=== PATIENT | female | born 1945 | race Caucasian/White ===

== ENCOUNTER 2021-02-24 13:00 | Inpatient (IN) ==
[2021-02-24 13:23] VITALS: BMI 38.7
--- NOTE | 2021-02-24 13:47 | DR.EXTPAIN ---
HPI Time seen Time Seen by Provider: 02/24/21 13:43 PCP Primary Care Physician: TRUDY Complaint/Symptoms Chief Complaint:: PT C/O SYNCOPAL EPISODES FOR THE PAST COUPLE OF DAYS. PTS O2 UPON EMS ARRIVAL WAS 84% ON RA. PT STATES SHE COULDN'T FIND HER INHALER. EMS FOUND PTS INHALER AND AFTER INHALER SHE COME UP TO 94-96%. EMS PLACED PT ON 3L N/C. PT IS CURRENTLY ON 2L N/C @ 99%. PT IS ALERT AND TALKING ON CELLPHONE UPON ARRIVAL. PT IS TALKING ON CELLPHONE AT THIS TIME WHILE ON STRETCHER IN [facility]. ABLE TO ANSWER QUESTIONS AND MAKE NEEDS KNOWN, VERY MUCH ALERT AND TALKATIVE. Source History Provided: Patient Mode of arrival Mode of Arrival: Stretcher Timing Onset of Chief Complaint: 02/24/21 PMH PMH Past Medical History: Yes Past Medical History: Arthritis, Asthma, COPD, Depression, Diabetes, Dyslip idemia, Gout, Hypertension, Hypothyroidism and Seizures Past Surgical History: Yes Surgical History: Cholecystectomy Family History History of Family Medical Conditions: Yes Family Medical History: Diabetes Mellitus, Cancer, Heart Failure and Hypertension Social History Does patient currently use any type of tobacco product: No Have you used tobacco products in the last 12 months: No Type of Tobacco Use: None Does any household member use tobacco: No Alcohol Use: None Do you use any recreational Drugs:: No Lives With: Alone Lives Where: Home Infectious screening In the last 2 months have you had wt loss of >10#?: NO Have you had fever, night sweats or hemotysis?: No Have you traveled outside the country in the last 6 months?: No Isolation: Standard ROS Review of Systems Constitutional: No Symptoms Reported and See HPI Eyes: No Symptoms Reported and See HPI ENTM: No Symptoms Reported and See HPI Respiratoy: No Symptoms Reported and See HPI Cardiovascular: No Symptoms Reported and See HPI Gastrointestinal/Abdominal: No Symptoms Reported and See HPI Genitourinary: No Symptoms Reported and See HPI Neurological: No Symptoms Reported and See HPI Musculoskeletal: No Symptoms Reported and See HPI Integumentary: No Symptoms Reported and See HPI Hematologic/Lymphatic: No Symptoms Reported and See HPI Endocrine: No Symptoms Reported and See HPI Psychiatric: No Symptoms Reported and See HPI All Other Systems: Reviewed and Negative PE Vital Signs Vitals: Temperature 97.4 F Pulse Rate 73 Respiratory Rate 20 Blood Pressure 135/89 O2 Sat by Pulse Oximetry 100 General Limitations: No Limitations General Appearance: Alert and In No Apparent Distress Head Head Exam: Normal Inspection Eyes Eye exam: Normal Appearance ENT ENT Exam: Normal Exam Neck Neck Exam: Normal Inspection Chest Chest Inspection: Normal Inspection Respiratory Respiratory Exam: Normal Lung Sounds Bilat Cardiovascular Cardiovascular Exam: Regular Rate and Normal Rhythm Abdominal Exam Abdominal Exam: Normal Inspection, Normal Bowel Sounds and Soft Extremities Extremities Exam: Normal Inspection Back Back Exam: Normal Inspection Neurological Neurological Exam: Alert, Oriented X3 and CN II-XII Intact Psychiatric Psychiatric Exam: Normal Affect and Normal Mood Skin Skin Exam: Warm, Dry, Intact and Normal Color ROR Labs Reviewed Result Diagrams: 02/24/21 15:30 02/24/21 15:30 Laboratory: WBC 19.0 X10^3/uL (3.6-10.0) H 02/24/21 15:30 RBC 4.50 X10^6/uL (3.5-5.4) 02/24/21 15:30 Hgb 14.4 g/dL (12.0-16.0) 02/24/21 15:30 Hct 42.9 % (36.0-47.0) 02/24/21 15:30 MCV 95.3 fL (80.0-100.0) 02/24/21 15:30 MCH 32.0 pg (27.0-34.0) 02/24/21 15:30 MCHC 33.5 g/dL (33.0-35.0) 02/24/21 15:30 RDW 15.5 % (11.6-16.5) 02/24/21 15:30 Plt Count 455 X10^3/uL (150.0-450.0) H 02/24/21 15:30 Plt Count Comment Increased (ADEQUATE) A 02/24/21 15:30 MPV 8.4 fL (7.4-11.0) 02/24/21 15:30 Neut % (Auto) 80.2 % (42.0-75.0) H 02/24/21 15:30 Lymph % (Auto) 13.6 % (21.0-51.0) L 02/24/21 15:30 [place] % (Auto) 5.5 % (0.0-13.0) 02/24/21 15:30 Eos % (Auto) 0.2 % (0.9-2.9) L 02/24/21 15:30 Baso % (Auto) 0.5 % (0.2-1.0) 02/24/21 15:30 Neut # (Auto) 14.1 x10^3/uL (2.2-4.8) H 02/24/21 15:30 Lymph # (Auto) 2.4 X10^3/uL (1.3-2.9) 02/24/21 15:30 [place] # (Auto) 1.0 x10^3/uL (0.3-0.8) H 02/24/21 15:30 Eos # (Auto) 0.0 x10^3/uL (0.0-0.2) 02/24/21 15:30 Baso # (Auto) 0.1 X10^3/uL (0.0-0.1) 02/24/21 15:30 Absolute Nucleated RBC 0.5 /100WBC 02/24/21 15:30 Plt Morphology Comment Normal (NORMAL) 02/24/21 15:30 RBC Morphology Normal (NORMAL) 02/24/21 15:30 Sodium 138 mmol/L (136-145) 02/24/21 15:30 Corrected Sodium 138 mmol/L (136-145) 02/24/21 15:30 Potassium 4.5 mmol/L (3.5-5.1) 02/24/21 15:30 Chloride 100 mmol/L (98-107) 02/24/21 15:30 Carbon Dioxide 26.7 mmol/L (21-32) 02/24/21 15:30 BUN 35 mg/dL (7-18) H 02/24/21 15:30 Creatinine 4.49 mg/dL (0.55-1.02) H 02/24/21 15:30 Est GFR (MDRD) Af Amer 12 (>60) L 02/24/21 15:30 Est GFR (MDRD) Non-Af 10 (>60) L 02/24/21 15:30 Glucose 115 mg/dL (65-99) H 02/24/21 15:30 Calcium 9.2 mg/dL (8.5-10.1) 02/24/21 15:30 Corrected Calcium TNP 02/24/21 15:30 Total Bilirubin 0.70 mg/dL (0.2-1.0) 02/24/21 15:30 AST 59 Units/L (15-37) H 02/24/21 15:30 ALT 41 Units/L (12-78) 02/24/21 15:30 Alkaline Phosphatase 135 Units/L (46-116) H 02/24/21 15:30 Creatine Kinase 137 Units/L (26-192) 02/24/21 15:30 CK-MB (CK-2) 2.1 ng/mL (0-4.0) 02/24/21 15:30 CK/CKMB % Calc 1.5 % (<4) 02/24/21 15:30 Troponin I < 0.02 ng/mL (0-1.5) 02/24/21 15:30 Total Protein 7.9 g/dL (6.4-8.2) 02/24/21 15:30 Albumin 3.8 g/dL (3.4-5.0) 02/24/21 15:30 Globulin 4.1 g/dL (2.5-4.5) 02/24/21 15:30 Albumin/Globulin Ratio 0.9 Ratio (1.1-2.1) L 02/24/21 15:30 Specimen Type Clean catch urine 02/24/21 16:55 Urine Color Dark yellow (YELLOW) 02/24/21 16:55 Urine Appearance Cloudy (CLEAR) 02/24/21 16:55 Urine pH 5.0 (5.0 - 8.0) 02/24/21 16:55 Ur Specific [place] 1.020 (1.000-1.030) 02/24/21 16:55 Urine Protein 3+ (NEGATIVE) 02/24/21 16:55 Urine Glucose (UA) Negative (NEGATIVE) 02/24/21 16:55 Urine Ketones 1+ (NEGATIVE) 02/24/21 16:55 Urine Occult Blood 3+ (NEGATIVE) 02/24/21 16:55 Urine Nitrite Negative (NEGATIVE) 02/24/21 16:55 Urine Bilirubin 3+ (NEGATIVE) 02/24/21 16:55 Urine Urobilinogen 1+ (NORMAL) 02/24/21 16:55 Ur Leukocyte Esterase 3+ (NEGATIVE) 02/24/21 16:55 Urine RBC Tntc /HPF (0-3) A 02/24/21 16:55 Urine WBC Tntc /HPF (0-5) A 02/24/21 16:55 Ur Squamous Epith Cells Numerous /HPF (NEGATIVE) 02/24/21 16:55 Amorphous Sediment 4+ /HPF (NEGATIVE) 02/24/21 16:55 Urine Bacteria 3+ /HPF (NEGATIVE) 02/24/21 16:55 Ur Culture Indicated? No/not indicated 02/24/21 16:55 SARS CoV-2 RNA Rapid FARSHAD Negative (NEGATIVE) 02/24/21 19:20 Opioid Opioid Risk Tool Age (Sal box if 16-45): No History of Preadolescent Sexual Abuse: No Total: 0 Total Score Risk Category: Low Risk Copyright: Handy BOLTON predicting aberrant behaviors Diagnosis Discharge Problem: Acute dehydration, Acute renal failure, Episode of syncope, UTI (urinary tract infection) Instructions Forms: Precautions for COVID19 [facility] Patient Portal Social Distancing
--- NOTE | 2021-02-24 15:00 | CT ---
HISTORYSYNCOPESTUDYBRAIN W/O CONCOMPARISONNone.TECHNIQUEMultiple axial images of the head were performed from the skullbase to the vertex using standard departmental protocol. Sagittal and coronal reformatted images were performed. Dose reduction techniques including Automated Exposure Control (AEC) and adjustment of mA and kV were utilized.FINDINGSThe lateral ventricles and basilar cisterns are patent.No parenchymal mass or hematoma. Chavez-white differentiation appears acutely preserved.No extra-axial collection.The globes are intact.Partial opacification the right sphenoid sinus. Mild mucosal thickening of the right maxillary and left sphenoid sinus.The calvarium is intact.IMPRESSIONNo acute intracranial abnormality.Electronically signed by: Nnamdi Adan (Feb 24, 2021 14:58:46)
[2021-02-24 15:44] LABS: BASOPHILS # (AUTO) 0.1 X10^3/uL (0.0-0.1); BASOPHILS % (AUTO) 0.5 % (0.2-1.0); EOSINOPHILS % (AUTO) 0.2 % (0.9-2.9); HEMATOCRIT 42.9 % (36.0-47.0); HEMOGLOBIN 14.4 g/dL (12.0-16.0); LYMPHOCYTES # (AUTO) 2.4 X10^3/uL (1.3-2.9); LYMPHOCYTES % (AUTO) 13.6 % (21.0-51.0); MEAN CORPUSCULAR HGB CONC 33.5 g/dL (33.0-35.0); MEAN CORPUSCULAR VOLUME 95.3 fL (80.0-100.0); MEAN PLATELET VOLUME 8.4 fL (7.4-11.0); MONOCYTES % (AUTO) 5.5 % (0.0-13.0); NEUTROPHILS # (AUTO) 14.1 x10^3/uL (2.2-4.8); NEUTROPHILS % (AUTO) 80.2 % (42.0-75.0); PLATELET COUNT 455 X10^3/uL (150.0-450.0); RED CELL DISTRIBUTION WIDTH 15.5 % (11.6-16.5)
[2021-02-24 16:08] LABS: PLATELET MORPHOLOGY COMMENT NORMAL (NORMAL)
[2021-02-24 16:44] LABS: ALANINE AMINOTRANSFERASE 41 Units/L (12-78); ALKALINE PHOSPHATASE 135 Units/L (46-116); ASPARTATE AMINO TRANSFERASE 59 Units/L (15-37); CARBON DIOXIDE 26.7 mmol/L (21-32); CHLORIDE 100 mmol/L (98-107); CKMB % 1.5 % (<4); COR NA(FOR HYPERGLY) 138 mmol/L (136-145); CREATINE KINASE 137 Units/L (26-192); CREATINE KINASE MB 2.1 ng/mL (0-4.0); SODIUM 138 mmol/L (136-145); TOTAL PROTEIN 7.9 g/dL (6.4-8.2); TROPONIN I < 0.02 ng/mL (0-1.5)
[2021-02-24 16:59] LABS: ALBUMIN 3.8 g/dL (3.4-5.0); BLOOD UREA NITROGEN 35 mg/dL (7-18); CALCIUM 9.2 mg/dL (8.5-10.1); CREATININE 4.49 mg/dL (0.55-1.02); eGFR NON BLACK RACES 10 (>60)
[2021-02-24 17:18] LABS: BILIRUBIN,URINE 3+ (NEGATIVE); BLOOD/HEMOGLOBIN,URINE 3+ (NEGATIVE); GLUCOSE, URINE NEGATIVE (NEGATIVE); KETONES,URINE 1+ (NEGATIVE); LEUKOCYTE ESTERASE ,URINE 3+ (NEGATIVE); NITRITES,URINE NEGATIVE (NEGATIVE); PROTEIN,URINE 3+ (NEGATIVE); UROBILINOGEN,URINE 1+ (NORMAL)
[2021-02-24 17:25] LABS: APPEARANCE,URINE CLOUDY (CLEAR); COLOR,URINE DARK YELLOW (YELLOW)
[2021-02-24 17:37] LABS: AMORPHOUS SEDIMENT,UR 4+ /HPF (NEGATIVE); BACTERIA,URINE 3+ /HPF (NEGATIVE); RBC,URINE TNTC /HPF (0-3); SQUAMOUS EPITHELIAL CELL,UR NUMEROUS /HPF (NEGATIVE)
--- NOTE | 2021-02-24 18:04 | RAD ---
Chest AP portableIndication: DyspneaComparison February 07, 2021FINDINGSThere is no pneumothorax or effusion. There is no dense consolidation. Heart size is normal.IMPRESSIONNo acute chest process.Electronically signed by: YOLI BYRNE (Feb 24, 2021 18:03:11)
[2021-02-24] MEDS ORDERED: ROCEPHIN 1 GRAM IV PREMIX 1 G/50 ML IV.SOLN. IV ONE ×2 (20:44→20:48)
[2021-02-24] MEDS: NS 1,000 ML IV 1,000 ML IV SCH (22:49)
[2021-02-24 23:55] LABS: CKMB % 2.2 % (<4); CREATINE KINASE 92 Units/L (26-192); TROPONIN I < 0.02 ng/mL (0-1.5)
[2021-02-25] MEDS ORDERED: ULTRAM PO PRN (01:58)
[2021-02-25] MEDS ORDERED: ULTRAM ONE (02:04)
[2021-02-25 02:30] LABS: CKMB % 2.3 % (<4); CREATINE KINASE 84 Units/L (26-192); CREATINE KINASE MB 1.9 ng/mL (0-4.0); TROPONIN I < 0.02 ng/mL (0-1.5)
[2021-02-25] MEDS: PROVENTIL NEB TX 0.083% 2.5MG/ 3ML NEB PRN ×4 (04:55→20:43)
[2021-02-25] MEDS: NS 1,000 ML IV 1,000 ML IV SCH ×3 (05:00→18:11)
[2021-02-25 06:55] LABS: BASOPHILS # (AUTO) 0.1 X10^3/uL (0.0-0.1); BASOPHILS % (AUTO) 0.4 % (0.2-1.0); EOSINOPHILS # (AUTO) 0.1 x10^3/uL (0.0-0.2); EOSINOPHILS % (AUTO) 0.4 % (0.9-2.9); HEMATOCRIT 35.6 % (36.0-47.0); HEMOGLOBIN 11.9 g/dL (12.0-16.0); LYMPHOCYTES # (AUTO) 5.4 X10^3/uL (1.3-2.9); LYMPHOCYTES % (AUTO) 36.6 % (21.0-51.0); MEAN CORPUSCULAR HGB CONC 33.5 g/dL (33.0-35.0); MEAN CORPUSCULAR VOLUME 95.6 fL (80.0-100.0); MEAN PLATELET VOLUME 8.3 fL (7.4-11.0); MONOCYTES # (AUTO) 1.3 x10^3/uL (0.3-0.8); MONOCYTES % (AUTO) 8.8 % (0.0-13.0); NEUTROPHILS # (AUTO) 7.8 x10^3/uL (2.2-4.8); NEUTROPHILS % (AUTO) 53.8 % (42.0-75.0); PLATELET COUNT 357 X10^3/uL (150.0-450.0); RED BLOOD COUNT 3.72 X10^6/uL (3.5-5.4); RED CELL DISTRIBUTION WIDTH 15.2 % (11.6-16.5); WHITE BLOOD COUNT 14.6 X10^3/uL (3.6-10.0)
[2021-02-25 07:09] LABS: ALANINE AMINOTRANSFERASE 52 Units/L (12-78); ALKALINE PHOSPHATASE 116 Units/L (46-116); ASPARTATE AMINO TRANSFERASE 39 Units/L (15-37); BLOOD UREA NITROGEN 39 mg/dL (7-18); CALCIUM 8.3 mg/dL (8.5-10.1); CARBON DIOXIDE 18.8 mmol/L (21-32); CHLORIDE 99 mmol/L (98-107); CKMB % 2.1 % (<4); COR CA(FOR HYPOALB) 9.1 mg/dL (8.5-10.1); CREATINE KINASE 75 Units/L (26-192); CREATINE KINASE MB 1.6 ng/mL (0-4.0); CREATININE 5.14 mg/dL (0.55-1.02); MAGNESIUM 1.7 mg/dL (1.7-2.9); SODIUM 136 mmol/L (136-145); TOTAL PROTEIN 6.8 g/dL (6.4-8.2); TROPONIN I < 0.02 ng/mL (0-1.5); eGFR NON BLACK RACES 9 (>60)
[2021-02-25] MEDS: LOVENOX INJ 30 MG SYR SC SCH (10:19)
[2021-02-25] MEDS: K-DUR TAB 20 MEQ PO SCH ×2 (10:20→21:25)
[2021-02-25 14:37] LABS: BILIRUBIN,URINE 3+ (NEGATIVE); BLOOD/HEMOGLOBIN,URINE 1+ (NEGATIVE); GLUCOSE, URINE NEGATIVE (NEGATIVE); KETONES,URINE NEGATIVE (NEGATIVE); LEUKOCYTE ESTERASE ,URINE 2+ (NEGATIVE); NITRITES,URINE NEGATIVE (NEGATIVE); PROTEIN,URINE 2+ (NEGATIVE); UROBILINOGEN,URINE NORMAL (NORMAL)
[2021-02-25 14:48] LABS: APPEARANCE,URINE HAZY (CLEAR); COLOR,URINE YELLOW (YELLOW)
[2021-02-25 14:49] LABS: AMORPHOUS SEDIMENT,UR 1+ /HPF (NEGATIVE); BACTERIA,URINE TRACE /HPF (NEGATIVE); MUCUS,URINE FEW /HPF (NEGATIVE); SQUAMOUS EPITHELIAL CELL,UR RARE /HPF (NEGATIVE)
[2021-02-25 16:42] LABS: ALANINE AMINOTRANSFERASE 50 Units/L (12-78); ALBUMIN 2.8 g/dL (3.4-5.0); ALKALINE PHOSPHATASE 123 Units/L (46-116); ASPARTATE AMINO TRANSFERASE 37 Units/L (15-37); BLOOD UREA NITROGEN 39 mg/dL (7-18); CARBON DIOXIDE 20.9 mmol/L (21-32); CHLORIDE 103 mmol/L (98-107); SODIUM 138 mmol/L (136-145); TOTAL PROTEIN 6.6 g/dL (6.4-8.2); eGFR NON BLACK RACES 9 (>60)
--- NOTE | 2021-02-25 16:59 | US ---
HISTORYARF, ELEVATED CREAT, ACUTE DEHYDRATIONSTUDYRENAL USCOMPARISONNo relevant prior studies available.TECHNIQUEGrayscale and color Doppler images of the kidneys/bladder.FINDINGSRight kidney: measures 8.0 x 4.3 x 4.3 cm. Renal cortex measures 1.1 cm. Resistive index 0.7Lobulated margin of the renal cortex.No hydronephrosis or ureteral calculus.Left kidney: measures 10.9 x 5.0 x 4.3 cm. Renal cortex measures 1.0 cm. Resistive index 0.79Mildly lobulated margin of the renal cortex.No hydronephrosis or ureteral calculus.Urinary bladder:Siddiqi catheter in the urinary bladder which is not well delineated.IMPRESSIONNo acute abnormality. Findings are consistent with some degree of chronic renal insufficiency; right greater than left.Electronically signed by: Sherman Evans (Feb 25, 2021 16:57:16)
[2021-02-25] MEDS ORDERED: NS 1,000 ML IV 1,000 ML IV ONE (17:31)
--- NOTE | 2021-02-25 19:14 | DR.H&P ---
H&P History & Physical for Day of: H&P Date: 02/24/21 Chief Complaint Chief Complaint: Passing Out Allergies Allergies Allergy/AdvReac Type Severity Reaction Status Date / Time aspirin Allergy Verified 03/03/19 08:21 codeine Allergy Verified 03/03/19 08:21 History of Present Illness History of Present Illness: 75 yo wf who presented to ED via EMS from [facility] for syncopal episodes over the last 2 days. She also reported SOB and dyspnea. She was unable to locate her Albuterol inhaler but fortunately the EMS found it. Her spO2 went from low 80's to low 90's after use prior coming to ED. She does have a history of asthma and COPD. She was found to have a UTI on admission and to be profoundly dehydrated with a Creatinine at nearly 5. Her baseline is around 1.3. She was subseqently admitted for IVF and IV abx for her UTI. Past Medical History Past Medical History: Arthritis, Asthma, COPD, Depression, Diabetes, Dyslipidemia, Gout, Hypertension, Hypothyroidism and Seizures Past Surgical History Surgical History: Hysterectomy Family History Family Medical History: Coronary Artery Disease, Heart Failure and Hypertension Social History Does patient currently use any type of tobacco product: No Have you used tobacco products in the last 12 months: No Type of Tobacco Use: None How many years tobacco product used: 3 Does any household member use tobacco: No Alcohol Use: None Drug Use: None Medications Home Medications: aspirin Allergy (Verified 03/03/19 08:21) codeine Allergy (Verified 03/03/19 08:21) CONTINUE taking the following medications albuterol sulfate 2 puff INHALATION Q4H PRN 02/24/21 [History] allopurinol 300 mg PO DAILY 02/24/21 [History] amlodipine 2.5 mg PO DAILY 02/24/21 [History] atorvastatin 40 mg PO QHS 02/24/21 [History] baclofen 20 mg PO Q8H 02/24/21 [History] bupropion HCl 100 mg PO BID 02/24/21 [History] dexlansoprazole [Dexilant] 30 mg PO DAILY 02/24/21 [History] duloxetine 30 mg PO DAILY 02/24/21 [History] famotidine 20 mg PO BID 02/24/21 [History] gabapentin 400 mg PO TID 02/24/21 [History] hydroxyzine HCl 50 mg PO BID 02/24/21 [History] lamotrigine 100 mg PO DAILY 02/24/21 [History] levothyroxine 125 mcg PO DAILY 02/24/21 [History] lisinopril 20 mg PO DAILY 02/24/21 [History] metoclopramide HCl 10 mg PO BID 02/24/21 [History] metoprolol succinate 50 mg PO DAILY 02/24/21 [History] nortriptyline 25 mg PO QHS 02/24/21 [History] oxybutynin chloride 5 mg PO BID 02/24/21 [History] pantoprazole 40 mg PO DAILY 02/24/21 [History] Labs Result Diagrams: 02/25/21 05:30 02/25/21 16:20 Labs: 02/24/21 19:15 Urine,Clean Catch Urine Culture - Final Laboratory WBC 14.6 X10^3/uL (3.6-10.0) H 02/25/21 05:30 RBC 3.72 X10^6/uL (3.5-5.4) 02/25/21 05:30 Hgb 11.9 g/dL (12.0-16.0) L D 02/25/21 05:30 Hct 35.6 % (36.0-47.0) L 02/25/21 05:30 MCV 95.6 fL (80.0-100.0) 02/25/21 05:30 MCH 32.0 pg (27.0-34.0) 02/25/21 05:30 MCHC 33.5 g/dL (33.0-35.0) 02/25/21 05:30 RDW 15.2 % (11.6-16.5) 02/25/21 05:30 Plt Count 357 X10^3/uL (150.0-450.0) 02/25/21 05:30 Plt Count Comment Increased (ADEQUATE) A 02/24/21 15:30 MPV 8.3 fL (7.4-11.0) 02/25/21 05:30 Neut % (Auto) 53.8 % (42.0-75.0) 02/25/21 05:30 Lymph % (Auto) 36.6 % (21.0-51.0) 02/25/21 05:30 [place] % (Auto) 8.8 % (0.0-13.0) 02/25/21 05:30 Eos % (Auto) 0.4 % (0.9-2.9) L 02/25/21 05:30 Baso % (Auto) 0.4 % (0.2-1.0) 02/25/21 05:30 Neut # (Auto) 7.8 x10^3/uL (2.2-4.8) H 02/25/21 05:30 Lymph # (Auto) 5.4 X10^3/uL (1.3-2.9) H 02/25/21 05:30 [place] # (Auto) 1.3 x10^3/uL (0.3-0.8) H 02/25/21 05:30 Eos # (Auto) 0.1 x10^3/uL (0.0-0.2) 02/25/21 05:30 Baso # (Auto) 0.1 X10^3/uL (0.0-0.1) 02/25/21 05:30 Absolute Nucleated RBC 0.1 /100WBC 02/25/21 05:30 Plt Morphology Comment Normal (NORMAL) 02/24/21 15:30 RBC Morphology Normal (NORMAL) 02/24/21 15:30 Sodium 138 mmol/L (136-145) 02/25/21 16:20 Corrected Sodium TNP 02/25/21 16:20 Potassium 3.5 mmol/L (3.5-5.1) 02/25/21 16:20 Chloride 103 mmol/L (98-107) 02/25/21 16:20 Carbon Dioxide 20.9 mmol/L (21-32) L 02/25/21 16:20 BUN 39 mg/dL (7-18) H 02/25/21 16:20 Creatinine 4.90 mg/dL (0.55-1.02) H 02/25/21 16:20 Est GFR (MDRD) Af Amer 11 (>60) L 02/25/21 16:20 Est GFR (MDRD) Non-Af 9 (>60) L 02/25/21 16:20 Glucose 87 mg/dL (65-99) 02/25/21 16:20 Calcium 8.0 mg/dL (8.5-10.1) L 02/25/21 16:20 Corrected Calcium 9.0 mg/dL (8.5-10.1) 02/25/21 16:20 Magnesium 1.7 mg/dL (1.7-2.9) 02/25/21 05:30 Total Bilirubin 0.40 mg/dL (0.2-1.0) 02/25/21 16:20 AST 37 Units/L (15-37) 02/25/21 16:20 ALT 50 Units/L (12-78) 02/25/21 16:20 Alkaline Phosphatase 123 Units/L (46-116) H 02/25/21 16:20 Creatine Kinase 75 Units/L (26-192) 02/25/21 05:30 CK-MB (CK-2) 1.6 ng/mL (0-4.0) 02/25/21 05:30 CK/CKMB % Calc 2.1 % (<4) 02/25/21 05:30 Troponin I < 0.02 ng/mL (0-1.5) 02/25/21 05:30 Total Protein 6.6 g/dL (6.4-8.2) 02/25/21 16:20 Albumin 2.8 g/dL (3.4-5.0) L 02/25/21 16:20 Globulin 3.8 g/dL (2.5-4.5) 02/25/21 16:20 Albumin/Globulin Ratio 0.7 Ratio (1.1-2.1) L 02/25/21 16:20 Specimen Type Catherized urine 02/25/21 14:28 Urine Color Yellow (YELLOW) 02/25/21 14: Urine Appearance Hazy (CLEAR) 02/25/21 14:28 Urine pH 5.0 (5.0 - 8.0) 02/25/21 14:28 Ur Specific [place] 1.025 (1.000-1.030) 02/25/21 14:28 Urine Protein 2+ (NEGATIVE) 02/25/21 14: Urine Glucose (UA) Negative (NEGATIVE) 02/25/21 14: Urine Ketones Negative (NEGATIVE) 02/25/21 14: Urine Occult Blood 1+ (NEGATIVE) 02/25/21 14: Urine Nitrite Negative (NEGATIVE) 02/25/21 14: Urine Bilirubin 3+ (NEGATIVE) 02/25/21 14:28 Urine Urobilinogen Normal (NORMAL) 02/25/21 14:28 Ur Leukocyte Esterase 2+ (NEGATIVE) 02/25/21 14:28 Urine RBC 3-5 /HPF (0-3) A 02/25/21 14:28 Urine WBC 30-50 /HPF (0-5) A 02/25/21 14:28 Ur Squamous Epith Cells Rare /HPF (NEGATIVE) 02/25/21 14:28 Amorphous Sediment 1+ /HPF (NEGATIVE) 02/25/21 14:28 Urine Bacteria Trace /HPF (NEGATIVE) 02/25/21 14:28 Urine Mucus Few /HPF (NEGATIVE) 02/25/21 14:28 Ur Culture Indicated? Yes/culture set up 02/25/21 14:28 SARS CoV-2 RNA Rapid FARSHAD Negative (NEGATIVE) 02/24/21 19:20 Review of Systems Constitutional: Weakness and Malaise Eyes: No Symptoms Reported ENT: No Symptoms Reported Respiratory: Shortness of Breath Cardiovascular: Light Headedness Gastrointestinal: No Symptoms Reported Genitourinary: Retention Musculoskeletal: No Symptoms Reported Skin: No Symptoms Reported Neurological: Weakness Physical Exam Vital Signs: Temperature 97.9 F Pulse Rate [Left Radial] 75 Pulse Rate 91 Respiratory Rate 20 Blood Pressure [Left Arm] 112/59 Blood Pressure 133/60 O2 Sat by Pulse Oximetry 95 Oriented: Normal Eyes: Normal Ear: Normal Nose: Normal Throat: Normal Respiratory: Clear Throughout Cardiovascular: Normal : Normal Auscultation: Bowel Sounds: Normal Palpation: Normal Tenderness: Normal Skin: Normal Musculoskeletal: Normal Psychiatric: Normal Mood Description: Appropriate Affect: Anxious and Depressed Speech Pattern: Clear Assessment/Plan (1) Acute dehydration: Status: Acute Plan: IVF (2) Acute renal failure: Status: Acute Plan: IV hydration (3) Episode of syncope: Status: Acute (4) UTI (urinary tract infection): Status: Acute Plan: IV abx (5) Hypothyroidism: Status: Acute (6) Seizure disorder: Status: Acute (7) COPD (chronic obstructive pulmonary disease): Status: Acute (8) Asthma: Status: Acute (9) Depression: Status: Acute Review H&P Reviewed: Yes Patient was examined?: Yes
--- NOTE | 2021-02-25 19:31 | PCM.PROG ---
Progress Note Progress Note for Day of Date of Exam: 02/25/21 Subjective Subjective: Alert and talking this am. Patient speaks clearly. Feels better since yesterday. 3+hematuria seen on u/a. Will plan on doing renal US and bladder US. Siddiqi catheter placed today sine pt. was not urinating in which greater than 200 ml came out. Her breathing is better and she has no SOB today. Past Medical Family Social History Past Med/Fam/Surg Hx: No changes since H&P Allergies: Allergies aspirin Allergy (Verified 03/03/19 08:21) codeine Allergy (Verified 03/03/19 08:21) Review of Systems ROS: No change since H&P Vital Signs and I&O's Vital Signs: Temperature 97.9 F Pulse Rate [Left Radial] 75 Pulse Rate 91 Respiratory Rate 20 Blood Pressure [Left Arm] 112/59 Blood Pressure 133/60 O2 Sat by Pulse Oximetry 95 Intake and Output: Intake & Output 02/23/21 02/24/21 02/25/21 02/26/21 11:59 11:59 11:59 11:59 Intake Total 3620 / 3620 2985 / 2985 Output Total 3 / 3 230 / 230 Balance 3617 / 3617 2755 / 2755 Physical Exam Oriented: Normal Eyes: Normal Ear: Normal Nose: Normal Throat: Normal Cardiovascular: Normal : Normal Auscultation: Bowel Sounds: Normal Tenderness: Normal Skin: Normal Musculoskeletal: Normal Psychiatric: Normal Mood Description: Appropriate Affect: Anxious and Depressed Speech Pattern: Clear Laboratory and Diagnostics Result Diagrams: 02/25/21 05:30 02/25/21 16:20 Labs: 02/24/21 19:15 Urine,Clean Catch Urine Culture - Final Laboratory WBC 14.6 X10^3/uL (3.6-10.0) H 02/25/21 05:30 RBC 3.72 X10^6/uL (3.5-5.4) 02/25/21 05:30 Hgb 11.9 g/dL (12.0-16.0) L D 02/25/21 05:30 Hct 35.6 % (36.0-47.0) L 02/25/21 05:30 MCV 95.6 fL (80.0-100.0) 02/25/21 05:30 MCH 32.0 pg (27.0-34.0) 02/25/21 05:30 MCHC 33.5 g/dL (33.0-35.0) 02/25/21 05:30 RDW 15.2 % (11.6-16.5) 02/25/21 05:30 Plt Count 357 X10^3/uL (150.0-450.0) 02/25/21 05:30 Plt Count Comment Increased (ADEQUATE) A 02/24/21 15:30 MPV 8.3 fL (7.4-11.0) 02/25/21 05:30 Neut % (Auto) 53.8 % (42.0-75.0) 02/25/21 05:30 Lymph % (Auto) 36.6 % (21.0-51.0) 02/25/21 05:30 [place] % (Auto) 8.8 % (0.0-13.0) 02/25/21 05:30 Eos % (Auto) 0.4 % (0.9-2.9) L 02/25/21 05:30 Baso % (Auto) 0.4 % (0.2-1.0) 02/25/21 05:30 Neut # (Auto) 7.8 x10^3/uL (2.2-4.8) H 02/25/21 05:30 Lymph # (Auto) 5.4 X10^3/uL (1.3-2.9) H 02/25/21 05:30 [place] # (Auto) 1.3 x10^3/uL (0.3-0.8) H 02/25/21 05:30 Eos # (Auto) 0.1 x10^3/uL (0.0-0.2) 02/25/21 05:30 Baso # (Auto) 0.1 X10^3/uL (0.0-0.1) 02/25/21 05:30 Absolute Nucleated RBC 0.1 /100WBC 02/25/21 05:30 Plt Morphology Comment Normal (NORMAL) 02/24/21 15:30 RBC Morphology Normal (NORMAL) 02/24/21 15:30 Sodium 138 mmol/L (136-145) 02/25/21 16:20 Corrected Sodium TNP 02/25/21 16:20 Potassium 3.5 mmol/L (3.5-5.1) 02/25/21 16:20 Chloride 103 mmol/L (98-107) 02/25/21 16:20 Carbon Dioxide 20.9 mmol/L (21-32) L 02/25/21 16:20 BUN 39 mg/dL (7-18) H 02/25/21 16:20 Creatinine 4.90 mg/dL (0.55-1.02) H 02/25/21 16:20 Est GFR (MDRD) Af Amer 11 (>60) L 02/25/21 16:20 Est GFR (MDRD) Non-Af 9 (>60) L 02/25/21 16:20 Glucose 87 mg/dL (65-99) 02/25/21 16:20 Calcium 8.0 mg/dL (8.5-10.1) L 02/25/21 16:20 Corrected Calcium 9.0 mg/dL (8.5-10.1) 02/25/21 16:20 Magnesium 1.7 mg/dL (1.7-2.9) 02/25/21 05:30 Total Bilirubin 0.40 mg/dL (0.2-1.0) 02/25/21 16:20 AST 37 Units/L (15-37) 02/25/21 16:20 ALT 50 Units/L (12-78) 02/25/21 16:20 Alkaline Phosphatase 123 Units/L (46-116) H 02/25/21 16:20 Creatine Kinase 75 Units/L (26-192) 02/25/21 05:30 CK-MB (CK-2) 1.6 ng/mL (0-4.0) 02/25/21 05:30 CK/CKMB % Calc 2.1 % (<4) 02/25/21 05:30 Troponin I < 0.02 ng/mL (0-1.5) 02/25/21 05:30 Total Protein 6.6 g/dL (6.4-8.2) 02/25/21 16:20 Albumin 2.8 g/dL (3.4-5.0) L 02/25/21 16:20 Globulin 3.8 g/dL (2.5-4.5) 02/25/21 16:20 Albumin/Globulin Ratio 0.7 Ratio (1.1-2.1) L 02/25/21 16:20 Specimen Type Catherized urine 02/25/21 14: Urine Color Yellow (YELLOW) 02/25/21 14: Urine Appearance Hazy (CLEAR) 02/25/21 14: Urine pH 5.0 (5.0 - 8.0) 02/25/21 14:28 Ur Specific [place] 1.025 (1.000-1.030) 02/25/21 14:28 Urine Protein 2+ (NEGATIVE) 02/25/21 14:28 Urine Glucose (UA) Negative (NEGATIVE) 02/25/21 14: Urine Ketones Negative (NEGATIVE) 02/25/21 14: Urine Occult Blood 1+ (NEGATIVE) 02/25/21 14: Urine Nitrite Negative (NEGATIVE) 02/25/21 14: Urine Bilirubin 3+ (NEGATIVE) 02/25/21 14: Urine Urobilinogen Normal (NORMAL) 02/25/21 14:28 Ur Leukocyte Esterase 2+ (NEGATIVE) 02/25/21 14:28 Urine RBC 3-5 /HPF (0-3) A 02/25/21 14:28 Urine WBC 30-50 /HPF (0-5) A 02/25/21 14:28 Ur Squamous Epith Cells Rare /HPF (NEGATIVE) 02/25/21 14:28 Amorphous Sediment 1+ /HPF (NEGATIVE) 02/25/21 14:28 Urine Bacteria Trace /HPF (NEGATIVE) 02/25/21 14:28 Urine Mucus Few /HPF (NEGATIVE) 02/25/21 14:28 Ur Culture Indicated? Yes/culture set up 02/25/21 14:28 SARS CoV-2 RNA Rapid FARSHAD Negative (NEGATIVE) 02/24/21 19:20 Radiology Reviewed: Yes Plan (1) Hematuria: Status: Acute Plan: Checking renal US today and bladder US as well. (2) Acute dehydration: Status: Acute Plan: IVF. Will bolus with 1 L of NS then continue IVF at 175 ml/hr (3) Acute renal failure: Status: Acute Plan: IV hydration. Hold po meds right now until I review which ones need to be renally dosed. (4) Episode of syncope: Status: Resolved Qualifiers: Syncope type: unspecified Qualified Code(s): R55 - Syncope and collapse (5) UTI (urinary tract infection): Status: Acute Qualifiers: Urinary tract infection type: acute cystitis Plan: IV Rocephin. F/U culture when available. (6) Hypothyroidism: Status: Acute Qualifiers: Hypothyroidism type: unspecified Qualified Code(s): E03.9 - Hypothyroidism, unspecified Plan: Will resume home Levothyroxine 125 mcg daily. (7) Seizure disorder: Status: Acute (8) COPD (chronic obstructive pulmonary disease): Status: Acute (9) Asthma: Status: Acute (10) Depression: Status: Acute
[2021-02-25] MEDS: ROCEPHIN 1 GRAM IV PREMIX 1 G/50 ML IV.SOLN. IV SCH (21:25)
[2021-02-26] MEDS: NS 1,000 ML IV 1,000 ML IV SCH ×3 (02:22→21:43)
[2021-02-26 06:42] LABS: BASOPHILS % (AUTO) 0.6 % (0.2-1.0); EOSINOPHILS # (AUTO) 0.1 x10^3/uL (0.0-0.2); EOSINOPHILS % (AUTO) 1.2 % (0.9-2.9); HEMATOCRIT 30.5 % (36.0-47.0); HEMOGLOBIN 10.2 g/dL (12.0-16.0); LYMPHOCYTES # (AUTO) 2.4 X10^3/uL (1.3-2.9); LYMPHOCYTES % (AUTO) 30.3 % (21.0-51.0); MEAN CORPUSCULAR HEMOGLOBIN 32.5 pg (27.0-34.0); MEAN CORPUSCULAR HGB CONC 33.6 g/dL (33.0-35.0); MEAN CORPUSCULAR VOLUME 96.7 fL (80.0-100.0); MEAN PLATELET VOLUME 8.4 fL (7.4-11.0); MONOCYTES # (AUTO) 0.8 x10^3/uL (0.3-0.8); MONOCYTES % (AUTO) 10.1 % (0.0-13.0); NEUTROPHILS # (AUTO) 4.6 x10^3/uL (2.2-4.8); NEUTROPHILS % (AUTO) 57.8 % (42.0-75.0); PLATELET COUNT 323 X10^3/uL (150.0-450.0); RED BLOOD COUNT 3.15 X10^6/uL (3.5-5.4); RED CELL DISTRIBUTION WIDTH 15.2 % (11.6-16.5); WHITE BLOOD COUNT 7.9 X10^3/uL (3.6-10.0)
[2021-02-26 07:08] LABS: ALANINE AMINOTRANSFERASE 40 Units/L (12-78); ALBUMIN 2.5 g/dL (3.4-5.0); ALKALINE PHOSPHATASE 122 Units/L (46-116); ASPARTATE AMINO TRANSFERASE 27 Units/L (15-37); BLOOD UREA NITROGEN 32 mg/dL (7-18); CALCIUM 7.6 mg/dL (8.5-10.1); CARBON DIOXIDE 20.4 mmol/L (21-32); CHLORIDE 110 mmol/L (98-107); COR CA(FOR HYPOALB) 8.8 mg/dL (8.5-10.1); CREATININE 2.89 mg/dL (0.55-1.02); SODIUM 142 mmol/L (136-145); eGFR NON BLACK RACES 17 (>60)
[2021-02-26] MEDS: K-DUR TAB 20 MEQ PO SCH ×2 (09:38→21:43)
[2021-02-26] MEDS: PROVENTIL NEB TX 0.083% 2.5MG/ 3ML NEB PRN ×3 (09:53→17:38)
[2021-02-26] MEDS: LOVENOX INJ 30 MG SYR SC SCH (10:33)
[2021-02-26] MEDS ORDERED: CITROMA PO ONE (12:12)
--- NOTE | 2021-02-26 17:22 | PCM.PROG ---
Progress Note Progress Note for Day of Date of Exam: 02/26/21 Subjective Subjective: Alert and talking this am. Patient speaks clearly. Feels better since yesterday. No new problems reported. Cr is 2.89 this am. Much improved since yesterday. Past Medical Family Social History Past Med/Fam/Surg Hx: No changes since H&P Allergies: Allergies aspirin Allergy (Verified 03/03/19 08:21) codeine Allergy (Verified 03/03/19 08:21) Review of Systems ROS: No change since H&P Vital Signs and I&O's Vital Signs: Temperature 97.7 F Pulse Rate [Left Radial] 76 Pulse Rate 80 Respiratory Rate 20 Blood Pressure [Right Arm] 152/75 Blood Pressure [Left Arm] 136/63 Blood Pressure 133/60 O2 Sat by Pulse Oximetry 100 Intake and Output: Intake & Output 02/24/21 02/25/21 02/26/21 02/27/21 11:59 11:59 11:59 11:59 Intake Total 3620 / 3620 5224 / 5224 1000 / 1000 Output Total 480 / 480 1000 / 1000 Balance 3617 / 3617 4744 / 4744 0 / 0 Physical Exam Oriented: Normal Eyes: Normal Ear: Normal Nose: Normal Throat: Normal Cardiovascular: Normal : Normal Auscultation: Bowel Sounds: Normal Tenderness: Normal Skin: Normal Musculoskeletal: Normal Psychiatric: Normal Mood Description: Appropriate Affect: Anxious and Depressed Speech Pattern: Clear and Appropriate Laboratory and Diagnostics Result Diagrams: 02/26/21 06:20 02/26/21 05:20 Labs: 02/25/21 14:29 Urine,Catheterized Urine Culture - Preliminary 02/24/21 19:15 Urine,Clean Catch Urine Culture - Final Laboratory WBC 7.9 X10^3/uL (3.6-10.0) 02/26/21 06:20 RBC 3.15 X10^6/uL (3.5-5.4) L 02/26/21 06:20 Hgb 10.2 g/dL (12.0-16.0) L 02/26/21 06:20 Hct 30.5 % (36.0-47.0) L 02/26/21 06:20 MCV 96.7 fL (80.0-100.0) 02/26/21 06:20 MCH 32.5 pg (27.0-34.0) 02/26/21 06:20 MCHC 33.6 g/dL (33.0-35.0) 02/26/21 06:20 RDW 15.2 % (11.6-16.5) 02/26/21 06:20 Plt Count 323 X10^3/uL (150.0-450.0) 02/26/21 06:20 Plt Count Comment Increased (ADEQUATE) A 02/24/21 15:30 MPV 8.4 fL (7.4-11.0) 02/26/21 06:20 Neut % (Auto) 57.8 % (42.0-75.0) 02/26/21 06:20 Lymph % (Auto) 30.3 % (21.0-51.0) 02/26/21 06:20 [place] % (Auto) 10.1 % (0.0-13.0) 02/26/21 06:20 Eos % (Auto) 1.2 % (0.9-2.9) 02/26/21 06:20 Baso % (Auto) 0.6 % (0.2-1.0) 02/26/21 06:20 Neut # (Auto) 4.6 x10^3/uL (2.2-4.8) 02/26/21 06:20 Lymph # (Auto) 2.4 X10^3/uL (1.3-2.9) 02/26/21 06:20 [place] # (Auto) 0.8 x10^3/uL (0.3-0.8) 02/26/21 06:20 Eos # (Auto) 0.1 x10^3/uL (0.0-0.2) 02/26/21 06:20 Baso # (Auto) 0.0 X10^3/uL (0.0-0.1) 02/26/21 06:20 Absolute Nucleated RBC 0.0 /100WBC 02/26/21 06:20 Plt Morphology Comment Normal (NORMAL) 02/24/21 15:30 RBC Morphology Normal (NORMAL) 02/24/21 15:30 Sodium 142 mmol/L (136-145) 02/26/21 05:20 Corrected Sodium TNP 02/26/21 05:20 Potassium 3.9 mmol/L (3.5-5.1) 02/26/21 05:20 Chloride 110 mmol/L (98-107) H 02/26/21 05:20 Carbon Dioxide 20.4 mmol/L (21-32) L 02/26/21 05:20 BUN 32 mg/dL (7-18) H 02/26/21 05:20 Creatinine 2.89 mg/dL (0.55-1.02) H 02/26/21 05:20 Est GFR (MDRD) Af Amer 20 (>60) L 02/26/21 05:20 Est GFR (MDRD) Non-Af 17 (>60) L 02/26/21 05:20 Glucose 110 mg/dL (65-99) H 02/26/21 05:20 Calcium 7.6 mg/dL (8.5-10.1) L 02/26/21 05:20 Corrected Calcium 8.8 mg/dL (8.5-10.1) 02/26/21 05:20 Magnesium 1.7 mg/dL (1.7-2.9) 02/25/21 05:30 Total Bilirubin 0.30 mg/dL (0.2-1.0) 02/26/21 05:20 AST 27 Units/L (15-37) 02/26/21 05:20 ALT 40 Units/L (12-78) 02/26/21 05:20 Alkaline Phosphatase 122 Units/L (46-116) H 02/26/21 05:20 Creatine Kinase 75 Units/L (26-192) 02/25/21 05:30 CK-MB (CK-2) 1.6 ng/mL (0-4.0) 02/25/21 05:30 CK/CKMB % Calc 2.1 % (<4) 02/25/21 05:30 Troponin I < 0.02 ng/mL (0-1.5) 02/25/21 05:30 Total Protein 6.0 g/dL (6.4-8.2) L 02/26/21 05:20 Albumin 2.5 g/dL (3.4-5.0) L 02/26/21 05:20 Globulin 3.5 g/dL (2.5-4.5) 02/26/21 05:20 Albumin/Globulin Ratio 0.7 Ratio (1.1-2.1) L 02/26/21 05:20 Specimen Type Catherized urine 02/25/21 14:28 Urine Color Yellow (YELLOW) 02/25/21 14: Urine Appearance Hazy (CLEAR) 02/25/21 14:28 Urine pH 5.0 (5.0 - 8.0) 02/25/21 14:28 Ur Specific [place] 1.025 (1.000-1.030) 02/25/21 14:28 Urine Protein 2+ (NEGATIVE) 02/25/21 14:28 Urine Glucose (UA) Negative (NEGATIVE) 02/25/21 14: Urine Ketones Negative (NEGATIVE) 02/25/21 14: Urine Occult Blood 1+ (NEGATIVE) 02/25/21 14: Urine Nitrite Negative (NEGATIVE) 02/25/21 14: Urine Bilirubin 3+ (NEGATIVE) 02/25/21 14: Urine Urobilinogen Normal (NORMAL) 02/25/21 14:28 Ur Leukocyte Esterase 2+ (NEGATIVE) 02/25/21 14:28 Urine RBC 3-5 /HPF (0-3) A 02/25/21 14:28 Urine WBC 30-50 /HPF (0-5) A 02/25/21 14:28 Ur Squamous Epith Cells Rare /HPF (NEGATIVE) 02/25/21 14:28 Amorphous Sediment 1+ /HPF (NEGATIVE) 02/25/21 14:28 Urine Bacteria Trace /HPF (NEGATIVE) 02/25/21 14:28 Urine Mucus Few /HPF (NEGATIVE) 02/25/21 14:28 Ur Culture Indicated? Yes/culture set up 02/25/21 14:28 SARS CoV-2 RNA Rapid FARSHAD Negative (NEGATIVE) 02/24/21 19:20 Radiology Reviewed: Yes Plan (1) Hematuria: Status: Acute Plan: Checking renal US today and bladder US as well. (2) Acute dehydration: Status: Acute Plan: IVF. Will bolus with 1 L of NS then continue IVF at 175 ml/hr (3) Acute renal failure: Status: Acute Narrative Support Text: Much improved. eGFR is now 17 up from 9 yesterday. Plan: IV hydration. Hold po meds right now until I review which ones need to be renally dosed. (4) Episode of syncope: Status: Resolved Qualifiers: Syncope type: unspecified Qualified Code(s): R55 - Syncope and collapse (5) UTI (urinary tract infection): Status: Acute Qualifiers: Urinary tract infection type: acute cystitis Narrative Support Text: Gram Stain showed GNR's. Leukocytosis has resolved. Plan: IV Rocephin. F/U culture when available. (6) Hypothyroidism: Status: Acute Qualifiers: Hypothyroidism type: unspecified Qualified Code(s): E03.9 - Hypothyroidism, unspecified Plan: Will resume home Levothyroxine 125 mcg daily. (7) Seizure disorder: Status: Acute Plan: Still holding lamotrigine because of patients ARF. (8) COPD (chronic obstructive pulmonary disease): Status: Acute (9) Asthma: Status: Acute (10) Depression: Status: Acute
[2021-02-26] MEDS: ROCEPHIN 1 GRAM IV PREMIX 1 G/50 ML IV.SOLN. IV SCH (21:44)
[2021-02-27] MEDS: NS 1,000 ML IV 1,000 ML IV SCH ×3 (05:00→19:24)
[2021-02-27 06:37] LABS: BASOPHILS % (AUTO) 0.5 % (0.2-1.0); EOSINOPHILS # (AUTO) 0.2 x10^3/uL (0.0-0.2); EOSINOPHILS % (AUTO) 2.2 % (0.9-2.9); HEMATOCRIT 31.4 % (36.0-47.0); HEMOGLOBIN 10.5 g/dL (12.0-16.0); LYMPHOCYTES # (AUTO) 1.9 X10^3/uL (1.3-2.9); LYMPHOCYTES % (AUTO) 26.8 % (21.0-51.0); MEAN CORPUSCULAR HEMOGLOBIN 32.3 pg (27.0-34.0); MEAN CORPUSCULAR HGB CONC 33.5 g/dL (33.0-35.0); MEAN CORPUSCULAR VOLUME 96.3 fL (80.0-100.0); MONOCYTES # (AUTO) 0.7 x10^3/uL (0.3-0.8); MONOCYTES % (AUTO) 9.4 % (0.0-13.0); NEUTROPHILS # (AUTO) 4.3 x10^3/uL (2.2-4.8); NEUTROPHILS % (AUTO) 61.1 % (42.0-75.0); PLATELET COUNT 334 X10^3/uL (150.0-450.0); RED BLOOD COUNT 3.26 X10^6/uL (3.5-5.4); RED CELL DISTRIBUTION WIDTH 15.5 % (11.6-16.5)
[2021-02-27 06:56] LABS: ALANINE AMINOTRANSFERASE 35 Units/L (12-78); ALBUMIN 2.6 g/dL (3.4-5.0); ALKALINE PHOSPHATASE 126 Units/L (46-116); ASPARTATE AMINO TRANSFERASE 22 Units/L (15-37); BLOOD UREA NITROGEN 19 mg/dL (7-18); CALCIUM 8.1 mg/dL (8.5-10.1); CARBON DIOXIDE 23.4 mmol/L (21-32); CHLORIDE 111 mmol/L (98-107); COR CA(FOR HYPOALB) 9.2 mg/dL (8.5-10.1); SODIUM 143 mmol/L (136-145); TOTAL PROTEIN 6.4 g/dL (6.4-8.2); eGFR NON BLACK RACES 42 (>60)
[2021-02-27] MEDS: PROVENTIL NEB TX 0.083% 2.5MG/ 3ML NEB PRN ×4 (08:40→21:17)
[2021-02-27] MEDS: CYMBALTA PO SCH (08:54)
[2021-02-27] MEDS: K-DUR TAB 20 MEQ PO SCH (08:54)
[2021-02-27] MEDS: LOVENOX INJ 30 MG SYR SC SCH (08:54)
[2021-02-27] MEDS: PROTONIX TAB 40 MG PO SCH (08:54)
[2021-02-27] MEDS ORDERED: RESTORIL CAP 15 MG PO PRN (14:01)
--- NOTE | 2021-02-27 15:21 | PCM.PROG ---
Progress Note Progress Note for Day of Date of Exam: 02/27/21 Subjective Subjective: Alert and talking this am. Patient speaks clearly. Feels better since yesterday. No new problems reported. Cr is 1.30 this am. Much improved since yesterday. Reports insomnia last night. Diarrhea yesterday and todays Hb was 10.5 Past Medical Family Social History Past Med/Fam/Surg Hx: No changes since H&P Allergies: Allergies aspirin Allergy (Verified 03/03/19 08:21) codeine Allergy (Verified 03/03/19 08:21) Review of Systems ROS: Changes notes (describe) ROS changes noted: diarrhea Vital Signs and I&O's Vital Signs: Temperature 97.6 F Pulse Rate [Left Radial] 76 Pulse Rate 69 Respiratory Rate 20 Blood Pressure [Right Arm] 151/70 Blood Pressure [Left Arm] 136/63 Blood Pressure 133/60 O2 Sat by Pulse Oximetry 100 Intake and Output: Intake & Output 02/25/21 02/26/21 02/27/21 02/28/21 11:59 11:59 11:59 11:59 Intake Total 3620 / 3620 5224 / 5224 6063 / 6063 Output Total 3 480 / 480 1000 / 1000 Balance 3617 / 3617 4744 / 4744 5063 / 5063 Physical Exam Oriented: Normal Eyes: Normal Ear: Normal Nose: Normal Throat: Normal Cardiovascular: Normal : Normal Auscultation: Bowel Sounds: Normal Tenderness: Normal Skin: Normal Musculoskeletal: Normal Psychiatric: Normal Mood Description: Calm and Appropriate Affect: Anxious and Depressed Speech Pattern: Clear and Appropriate Laboratory and Diagnostics Result Diagrams: 02/27/21 06:11 02/27/21 06:11 Labs: 02/27/21 08:35 Stool - Final 02/25/21 14:29 Urine,Catheterized Urine Culture - Final Escherichia Coli Serratia Marcescens 02/24/21 19:15 Urine,Clean Catch Urine Culture - Final Laboratory WBC 7.0 X10^3/uL (3.6-10.0) 02/27/21 06:11 RBC 3.26 X10^6/uL (3.5-5.4) L 02/27/21 06:11 Hgb 10.5 g/dL (12.0-16.0) L 02/27/21 06:11 Hct 31.4 % (36.0-47.0) L 02/27/21 06:11 MCV 96.3 fL (80.0-100.0) 02/27/21 06:11 MCH 32.3 pg (27.0-34.0) 02/27/21 06:11 MCHC 33.5 g/dL (33.0-35.0) 02/27/21 06:11 RDW 15.5 % (11.6-16.5) 02/27/21 06:11 Plt Count 334 X10^3/uL (150.0-450.0) 02/27/21 06:11 Plt Count Comment Increased (ADEQUATE) A 02/24/21 15:30 MPV 8.0 fL (7.4-11.0) 02/27/21 06:11 Neut % (Auto) 61.1 % (42.0-75.0) 02/27/21 06:11 Lymph % (Auto) 26.8 % (21.0-51.0) 02/27/21 06:11 [place] % (Auto) 9.4 % (0.0-13.0) 02/27/21 06:11 Eos % (Auto) 2.2 % (0.9-2.9) 02/27/21 06:11 Baso % (Auto) 0.5 % (0.2-1.0) 02/27/21 06:11 Neut # (Auto) 4.3 x10^3/uL (2.2-4.8) 02/27/21 06:11 Lymph # (Auto) 1.9 X10^3/uL (1.3-2.9) 02/27/21 06:11 [place] # (Auto) 0.7 x10^3/uL (0.3-0.8) 02/27/21 06:11 Eos # (Auto) 0.2 x10^3/uL (0.0-0.2) 02/27/21 06:11 Baso # (Auto) 0.0 X10^3/uL (0.0-0.1) 02/27/21 06:11 Absolute Nucleated RBC 0.0 /100WBC 02/27/21 06:11 Plt Morphology Comment Normal (NORMAL) 02/24/21 15:30 RBC Morphology Normal (NORMAL) 02/24/21 15:30 Sodium 143 mmol/L (136-145) 02/27/21 06:11 Corrected Sodium TNP 02/27/21 06:11 Potassium 4.6 mmol/L (3.5-5.1) 02/27/21 06:11 Chloride 111 mmol/L (98-107) H 02/27/21 06:11 Carbon Dioxide 23.4 mmol/L (21-32) 02/27/21 06:11 BUN 19 mg/dL (7-18) H 02/27/21 06:11 Creatinine 1.30 mg/dL (0.55-1.02) H 02/27/21 06:11 Est GFR (MDRD) Af Amer 51 (>60) L 02/27/21 06:11 Est GFR (MDRD) Non-Af 42 (>60) L 02/27/21 06:11 Glucose 90 mg/dL (65-99) 02/27/21 06:11 Calcium 8.1 mg/dL (8.5-10.1) L 02/27/21 06:11 Corrected Calcium 9.2 mg/dL (8.5-10.1) 02/27/21 06:11 Magnesium 1.7 mg/dL (1.7-2.9) 02/25/21 05:30 Total Bilirubin 0.30 mg/dL (0.2-1.0) 02/27/21 06:11 AST 22 Units/L (15-37) 02/27/21 06:11 ALT 35 Units/L (12-78) 02/27/21 06:11 Alkaline Phosphatase 126 Units/L (46-116) H 02/27/21 06:11 Creatine Kinase 75 Units/L (26-192) 02/25/21 05:30 CK-MB (CK-2) 1.6 ng/mL (0-4.0) 02/25/21 05:30 CK/CKMB % Calc 2.1 % (<4) 02/25/21 05:30 Troponin I < 0.02 ng/mL (0-1.5) 02/25/21 05:30 Total Protein 6.4 g/dL (6.4-8.2) 02/27/21 06:11 Albumin 2.6 g/dL (3.4-5.0) L 02/27/21 06:11 Globulin 3.8 g/dL (2.5-4.5) 02/27/21 06:11 Albumin/Globulin Ratio 0.7 Ratio (1.1-2.1) L 02/27/21 06:11 Specimen Type Catherized urine 02/25/21 14:28 Urine Color Yellow (YELLOW) 02/25/21 14:28 Urine Appearance Hazy (CLEAR) 02/25/21 14:28 Urine pH 5.0 (5.0 - 8.0) 02/25/21 14:28 Ur Specific [place] 1.025 (1.000-1.030) 02/25/21 14: Urine Protein 2+ (NEGATIVE) 02/25/21 14: Urine Glucose (UA) Negative (NEGATIVE) 02/25/21 14: Urine Ketones Negative (NEGATIVE) 02/25/21 14: Urine Occult Blood 1+ (NEGATIVE) 02/25/21 14: Urine Nitrite Negative (NEGATIVE) 02/25/21 14:28 Urine Bilirubin 3+ (NEGATIVE) 02/25/21 14:28 Urine Urobilinogen Normal (NORMAL) 02/25/21 14:28 Ur Leukocyte Esterase 2+ (NEGATIVE) 02/25/21 14:28 Urine RBC 3-5 /HPF (0-3) A 02/25/21 14:28 Urine WBC 30-50 /HPF (0-5) A 02/25/21 14:28 Ur Squamous Epith Cells Rare /HPF (NEGATIVE) 02/25/21 14:28 Amorphous Sediment 1+ /HPF (NEGATIVE) 02/25/21 14:28 Urine Bacteria Trace /HPF (NEGATIVE) 02/25/21 14:28 Urine Mucus Few /HPF (NEGATIVE) 02/25/21 14:28 Ur Culture Indicated? Yes/culture set up 02/25/21 14:28 Stool Description 30cc liquid yellow 02/27/21 08:35 Stl Occult Blood (IFOB) Negative (NEGATIVE) 02/27/21 08:35 Stl C. diff Tox B Gene Negative (NEGATIVE) 02/27/21 08:35 Stl C. diff [id number] Presumptive negative (NEGATIVE) 02/27/21 08:35 SARS CoV-2 RNA Rapid FARSHAD Negative (NEGATIVE) 02/24/21 19:20 Plan (1) Insomnia: Status: Acute Plan: Restoril 15 mg at HS (2) Anemia: Status: Acute Plan: Checked hemoccult and it was negative. (3) Diarrhea: Status: Acute Plan: Checking stool culture. Campylobacter was neg. (4) Hematuria: Status: Acute Plan: Checking renal US today and bladder US as well. (5) Acute dehydration: Status: Acute Narrative Support Text: Much improved. Almost normalized. Plan on discharge home tomorrow. Plan: Change IVF to 125 ml/hr (6) Acute renal failure: Status: Resolved Plan: IV hydration. Hold po meds right now until I review which ones need to be renally dosed. (7) Episode of syncope: Status: Resolved Qualifiers: Syncope type: unspecified Qualified Code(s): R55 - Syncope and collapse (8) UTI (urinary tract infection): Status: Acute Qualifiers: Urinary tract infection type: acute cystitis Narrative Support Text: Culture shows E.Coli and Serratia marsesens both sensitive to Rochephin . Plan: IV Rocephin. (9) Hypothyroidism: Status: Acute Qualifiers: Hypothyroidism type: unspecified Qualified Code(s): E03.9 - Hypothyroidism, unspecified Plan: Will resume home Levothyroxine 125 mcg daily. (10) Seizure disorder: Status: Acute Plan: Still holding lamotrigine because of patients ARF. (11) COPD (chronic obstructive pulmonary disease): Status: Acute (12) Asthma: Status: Acute (13) Depression: Status: Acute
[2021-02-27] MEDS: ROCEPHIN 1 GRAM IV PREMIX 1 G/50 ML IV.SOLN. IV SCH (20:48)
[2021-02-27] MEDS: MICRO K EXTEN CAP 10 MEQ PO SCH (21:30)
[2021-02-28] MEDS: NS 1,000 ML IV 1,000 ML IV SCH ×2 (05:48→11:13)
[2021-02-28 06:10] LABS: BASOPHILS # (AUTO) 0.1 X10^3/uL (0.0-0.1); BASOPHILS % (AUTO) 0.9 % (0.2-1.0); EOSINOPHILS # (AUTO) 0.2 x10^3/uL (0.0-0.2); EOSINOPHILS % (AUTO) 3.5 % (0.9-2.9); HEMATOCRIT 30.7 % (36.0-47.0); HEMOGLOBIN 10.2 g/dL (12.0-16.0); LYMPHOCYTES # (AUTO) 2.6 X10^3/uL (1.3-2.9); LYMPHOCYTES % (AUTO) 38.4 % (21.0-51.0); MEAN CORPUSCULAR HEMOGLOBIN 32.2 pg (27.0-34.0); MEAN CORPUSCULAR HGB CONC 33.1 g/dL (33.0-35.0); MEAN CORPUSCULAR VOLUME 97.4 fL (80.0-100.0); MEAN PLATELET VOLUME 8.6 fL (7.4-11.0); MONOCYTES # (AUTO) 0.6 x10^3/uL (0.3-0.8); NEUTROPHILS # (AUTO) 3.3 x10^3/uL (2.2-4.8); NEUTROPHILS % (AUTO) 48.2 % (42.0-75.0); PLATELET COUNT 307 X10^3/uL (150.0-450.0); RED BLOOD COUNT 3.15 X10^6/uL (3.5-5.4); RED CELL DISTRIBUTION WIDTH 15.5 % (11.6-16.5); WHITE BLOOD COUNT 6.7 X10^3/uL (3.6-10.0)
[2021-02-28 06:18] LABS: ALANINE AMINOTRANSFERASE 29 Units/L (12-78); ALBUMIN 2.5 g/dL (3.4-5.0); ALKALINE PHOSPHATASE 109 Units/L (46-116); ASPARTATE AMINO TRANSFERASE 22 Units/L (15-37); BLOOD UREA NITROGEN 11 mg/dL (7-18); CALCIUM 7.9 mg/dL (8.5-10.1); CARBON DIOXIDE 22.1 mmol/L (21-32); CHLORIDE 110 mmol/L (98-107); COR CA(FOR HYPOALB) 9.1 mg/dL (8.5-10.1); CREATININE 0.92 mg/dL (0.55-1.02); SODIUM 142 mmol/L (136-145); eGFR NON BLACK RACES > 60 (>60)
[2021-02-28] MEDS: CYMBALTA PO SCH (08:37)
[2021-02-28] MEDS: MICRO K EXTEN CAP 10 MEQ PO SCH (08:37)
[2021-02-28] MEDS: PROTONIX TAB 40 MG PO SCH (08:38)
[2021-02-28] MEDS: PROVENTIL NEB TX 0.083% 2.5MG/ 3ML NEB PRN ×2 (09:00→12:53)
[2021-02-28] MEDS: LOVENOX INJ 30 MG SYR SC SCH (11:12)
--- NOTE | 2021-02-28 12:26 | PCM.DCPLAN ---
DISCHARGE SUMMARY Admission Date Date of Admission: 02/24/21 Discharge Date Discharge Date: 02/28/21 Admission Diagnoses (1) Insomnia: Status: Acute (2) Anemia: Status: Acute (3) Diarrhea: Status: Acute (4) Hematuria: Status: Acute (5) Acute dehydration: Status: Acute (6) Acute renal failure: Status: Resolved (7) Episode of syncope: Status: Resolved (8) UTI (urinary tract infection): Status: Acute (9) Hypothyroidism: Status: Acute (10) Seizure disorder: Status: Acute (11) COPD (chronic obstructive pulmonary disease): Status: Acute (12) Asthma: Status: Acute (13) Depression: Status: Acute Discharge Diagnoses Discharge Diagnosis: 1. ARF due to dehydration resolved 2. UTI due to E. Coli and Serratia Marcescens 3. Syncopal episode prior to admission now resolved. 4. Hypothyroidism 5. Asthma/ COPD 6. Seizure Disorder 7. History of Depression 8. Diarrhea no resolved 9. Anemia with negative hemmocult Discharge Medications Discharge Medications: Home Medication List albuterol sulfate 2 puff INHALATION Q4H PRN 02/24/21 [History] allopurinol 300 mg PO DAILY 02/24/21 [History] amlodipine 2.5 mg PO DAILY 02/24/21 [History] atorvastatin 40 mg PO QHS 02/24/21 [History] baclofen 20 mg PO Q8H 02/24/21 [History] bupropion HCl 100 mg PO BID 02/24/21 [History] dexlansoprazole [Dexilant] 30 mg PO DAILY 02/24/21 [History] duloxetine 30 mg PO DAILY 02/24/21 [History] famotidine 20 mg PO BID 02/24/21 [History] gabapentin 400 mg PO TID 02/24/21 [History] hydroxyzine HCl 50 mg PO BID 02/24/21 [History] lamotrigine 100 mg PO DAILY 02/24/21 [History] levothyroxine 125 mcg PO DAILY 02/24/21 [History] lisinopril 20 mg PO DAILY 02/24/21 [History] metoclopramide HCl 10 mg PO BID 02/24/21 [History] metoprolol succinate 50 mg PO DAILY 02/24/21 [History] nortriptyline 25 mg PO QHS 02/24/21 [History] oxybutynin chloride 5 mg PO BID 02/24/21 [History] pantoprazole 40 mg PO DAILY 02/24/21 [History] Prescriptions: Hospital Course Vital Signs: Temperature 98.1 F Pulse Rate [Left Radial] 74 Pulse Rate 88 Respiratory Rate 20 Blood Pressure [Right Arm] 189/79 Blood Pressure [Left Arm] 136/63 Blood Pressure 133/60 O2 Sat by Pulse Oximetry 97 Latest Lab Results: Laboratory Last Values WBC 6.7 X10^3/uL (3.6-10.0) 02/28/21 05:18 RBC 3.15 X10^6/uL (3.5-5.4) L 02/28/21 05:18 Hgb 10.2 g/dL (12.0-16.0) L 02/28/21 05:18 Hct 30.7 % (36.0-47.0) L 02/28/21 05:18 MCV 97.4 fL (80.0-100.0) 02/28/21 05:18 MCH 32.2 pg (27.0-34.0) 02/28/21 05:18 MCHC 33.1 g/dL (33.0-35.0) 02/28/21 05:18 RDW 15.5 % (11.6-16.5) 02/28/21 05:18 Plt Count 307 X10^3/uL (150.0-450.0) 02/28/21 05:18 Plt Count Comment Increased (ADEQUATE) A 02/24/21 15:30 MPV 8.6 fL (7.4-11.0) 02/28/21 05:18 Neut % (Auto) 48.2 % (42.0-75.0) 02/28/21 05:18 Lymph % (Auto) 38.4 % (21.0-51.0) 02/28/21 05:18 [place] % (Auto) 9.0 % (0.0-13.0) 02/28/21 05:18 Eos % (Auto) 3.5 % (0.9-2.9) H 02/28/21 05:18 Baso % (Auto) 0.9 % (0.2-1.0) 02/28/21 05:18 Neut # (Auto) 3.3 x10^3/uL (2.2-4.8) 02/28/21 05:18 Lymph # (Auto) 2.6 X10^3/uL (1.3-2.9) 02/28/21 05:18 [place] # (Auto) 0.6 x10^3/uL (0.3-0.8) 02/28/21 05:18 Eos # (Auto) 0.2 x10^3/uL (0.0-0.2) 02/28/21 05:18 Baso # (Auto) 0.1 X10^3/uL (0.0-0.1) 02/28/21 05:18 Absolute Nucleated RBC 0.1 /100WBC 02/28/21 05:18 Plt Morphology Comment Normal (NORMAL) 02/24/21 15:30 RBC Morphology Normal (NORMAL) 02/24/21 15:30 Sodium 142 mmol/L (136-145) 02/28/21 05:18 Corrected Sodium TNP 02/28/21 05:18 Potassium 4.4 mmol/L (3.5-5.1) 02/28/21 05:18 Chloride 110 mmol/L (98-107) H 02/28/21 05:18 Carbon Dioxide 22.1 mmol/L (21-32) 02/28/21 05:18 BUN 11 mg/dL (7-18) 02/28/21 05:18 Creatinine 0.92 mg/dL (0.55-1.02) 02/28/21 05:18 Est GFR (MDRD) Af Amer > 60 (>60) 02/28/21 05:18 Est GFR (MDRD) Non-Af > 60 (>60) 02/28/21 05:18 Glucose 90 mg/dL (65-99) 02/28/21 05:18 Calcium 7.9 mg/dL (8.5-10.1) L 02/28/21 05:18 Corrected Calcium 9.1 mg/dL (8.5-10.1) 02/28/21 05:18 Magnesium 1.7 mg/dL (1.7-2.9) 02/25/21 05:30 Total Bilirubin 0.40 mg/dL (0.2-1.0) 02/28/21 05:18 AST 22 Units/L (15-37) 02/28/21 05:18 ALT 29 Units/L (12-78) 02/28/21 05:18 Alkaline Phosphatase 109 Units/L (46-116) 02/28/21 05:18 Creatine Kinase 75 Units/L (26-192) 02/25/21 05:30 CK-MB (CK-2) 1.6 ng/mL (0-4.0) 02/25/21 05:30 CK/CKMB % Calc 2.1 % (<4) 02/25/21 05:30 Troponin I < 0.02 ng/mL (0-1.5) 02/25/21 05:30 Total Protein 6.0 g/dL (6.4-8.2) L 02/28/21 05:18 Albumin 2.5 g/dL (3.4-5.0) L 02/28/21 05:18 Globulin 3.5 g/dL (2.5-4.5) 02/28/21 05:18 Albumin/Globulin Ratio 0.7 Ratio (1.1-2.1) L 02/28/21 05:18 Specimen Type Catherized urine 02/25/21 14:28 Urine Color Yellow (YELLOW) 02/25/21 14:28 Urine Appearance Hazy (CLEAR) 02/25/21 14:28 Urine pH 5.0 (5.0 - 8.0) 02/25/21 14:28 Ur Specific [place] 1.025 (1.000-1.030) 02/25/21 14:28 Urine Protein 2+ (NEGATIVE) 02/25/21 14:28 Urine Glucose (UA) Negative (NEGATIVE) 02/25/21 14: Urine Ketones Negative (NEGATIVE) 02/25/21 14:28 Urine Occult Blood 1+ (NEGATIVE) 02/25/21 14: Urine Nitrite Negative (NEGATIVE) 02/25/21 14: Urine Bilirubin 3+ (NEGATIVE) 02/25/21 14:28 Urine Urobilinogen Normal (NORMAL) 02/25/21 14: Ur Leukocyte Esterase 2+ (NEGATIVE) 02/25/21 14:28 Urine RBC 3-5 /HPF (0-3) A 02/25/21 14:28 Urine WBC 30-50 /HPF (0-5) A 02/25/21 14:28 Ur Squamous Epith Cells Rare /HPF (NEGATIVE) 02/25/21 14:28 Amorphous Sediment 1+ /HPF (NEGATIVE) 02/25/21 14:28 Urine Bacteria Trace /HPF (NEGATIVE) 02/25/21 14:28 Urine Mucus Few /HPF (NEGATIVE) 02/25/21 14:28 Ur Culture Indicated? Yes/culture set up 02/25/21 14:28 Stool Description 30cc liquid yellow 02/27/21 08:35 Stl Occult Blood (IFOB) Negative (NEGATIVE) 02/27/21 08:35 Stl C. diff Tox B Gene Negative (NEGATIVE) 02/27/21 08:35 Stl C. diff [id number] Presumptive negative (NEGATIVE) 02/27/21 08:35 SARS CoV-2 RNA Rapid FARSHAD Negative (NEGATIVE) 02/24/21 19:20 Hospital Course: Following admission the patients Cr. worsened to > 5 after she was on 150 ml of NS. It was increased to 175 ml/hr and she was give a 1 l bouls of NS as well. By the next day her Cr. was improving. UTI was present on admission and she was started on IV Rocephin. Cultures grew out E. Coli and Serratia Marcescens both sensitive to Rocephin and PO Cipro. Boyh with DAVID of < 1. She did report some decreased BM's so she was give Mag Citrate and she deloped diarrhea and it was noted her Hb had dropped. Sool Cultures were done and were neg for [place]. and hemocult was negative. By the last day of hospitalization her Cr had normalized to 0.92 and she felt much better. She is discharged home in stable condition. Instructions Forms: Excuse From Work or School Precautions for COVID19 [facility] Social Distancing
[2021-02-28 12:44] VITALS: BP 143/90
== END 2021-02-28 13:50 | disposition home or self-care (01) | DRG 683 ==
LOC: ER 13:00 → MED/SURG 20:51
PROVIDERS: ADMIT Obstetrics & Gynecology Obstetrics; ATTEND Family Medicine
DX: R55 Syncope and collapse; G40.909 Epilepsy, unspecified, not intractable, without status epilepticus; Z20.822 Contact with and (suspected) exposure to COVID-19; B96.89 Other specified bacterial agents as the cause of diseases classified elsewhere; R31.9 Hematuria, unspecified; R94.31 Abnormal electrocardiogram [ECG] [EKG]; E86.0 Dehydration; B96.29 Other Escherichia coli [E. coli] as the cause of diseases classified elsewhere; R19.7 Diarrhea, unspecified; D64.89 Other specified anemias; N17.8 Other acute kidney failure; J44.9 Chronic obstructive pulmonary disease, unspecified; R06.02 Shortness of breath; E03.8 Other specified hypothyroidism; F32.A Depression, unspecified; N39.0 Urinary tract infection, site not specified